=== PATIENT | female | born 1980 | race African-American/Black ===

== ENCOUNTER 2017-05-04 05:29 | Inpatient (IN) | payer OTHER ==
[~2017-05-04] VITALS: Ht 165.1 cm; Wt 190.1 kg
[~2017-05-04 05:29] MED LIST: AMLO5TAB2 PO; FLUT1SPR5 EACH NARE; METF1000 PO; METF500T PO; METO50TA PO; NAPR500T PO; NORE5TAB PO; SIMV20TA PO; VITA1000 PO; VITACAP7 PO
[2017-05-04] MEDS ORDERED: INSULIN HUMAN REGULAR 1,000 UNITS/10 ML VIAL SQ PRN (05:45)
[2017-05-04] MEDS ORDERED: SODIUM CHLORID 0.9% 500 ML IV PRN (05:45)
[2017-05-04] MEDS ORDERED: METOPROLOL TARTRATE 25 MG TAB PO PRN (05:45)
[2017-05-04] MEDS ORDERED: POVIDONE IODINE 5% (ANTISEPSIS KIT) 4 APPLICATIONS EACH NARE PRN (05:45)
[2017-05-04] MEDS ORDERED: CHLORHEXIDINE GLUCONATE 2 % 1 PACK (2 CLOTHS) TOPICAL PRN (05:45)
[2017-05-04] MEDS ORDERED: LACTATED RINGER'S 1000 ML IV PRN (05:45)
[2017-05-04] MEDS ORDERED: APREPITANT 40 MG CAP PO SCH (06:00)
[2017-05-04] MEDS ORDERED: ONDANSETRON HCL 4 MG/2 ML VIAL IV PUSH SCH (06:00)
[2017-05-04] MEDS ORDERED: ceFAZolin 2 GM PREMIX 50 ML IV SCH (06:00)
[2017-05-04] MEDS ORDERED: metroNIDAZOLE 500 MG INJ 100 ML IV SCH (06:00)
[2017-05-04] MEDS ORDERED: SCOPOLAMINE 1.5 MG PATCH T-DERMAL SCH (06:00)
[2017-05-04] MEDS ORDERED: ACETAMINOPHEN 1000 MG/100 ML 100 ML IV SCH (06:00)
[2017-05-04] MEDS ORDERED: BUPIVACAINE/EPINEPHRINE 0.25% 50 ML VIAL ONE (06:33)
[2017-05-04] MEDS ORDERED: METHYLENE BLUE 10 MG/ML VIAL OTHER ONE (08:21)
[2017-05-04] MEDS ORDERED: ACETAMINOPHEN 325MG/HYDROcodone 7.5MG/15ML UDC PO PRN ×2 (09:00)
[2017-05-04] MEDS ORDERED: MORPHINE SULFATE 30 MG/30 ML PCA IV SCH (09:00)
[2017-05-04] MEDS ORDERED: Post-op Orders (for Pharmacy) MISC OTHER ONE (09:00)
[2017-05-04] MEDS ORDERED: SODIUM CHLORIDE 0.9% FLUSH 10 ML FLUSH IV FLUSH PRN (09:00)
[2017-05-04] MEDS ORDERED: diphenhydrAMINE HCL ELIXIR 12.5 MG/5 ML CUP PO PRN (09:00)
[2017-05-04] MEDS ORDERED: DEXTROSE 50% IN WATER 50 ML VIAL(D50) IV PUSH PRN (09:00)
[2017-05-04] MEDS ORDERED: GLUCAGON 1 MG/ML VIAL OTHER PRN (09:00)
[2017-05-04] MEDS ORDERED: NALOXONE HCL 0.4 MG/ML AMP IV PUSH PRN (09:00)
[2017-05-04] MEDS ORDERED: diphenhydrAMINE HCL 50 MG/ML VIAL IV PUSH PRN (09:00)
[2017-05-04] MEDS: SODIUM CHLORIDE 0.9% FLUSH 10 ML FLUSH IV FLUSH SCH ×2 (09:00→19:52)
[2017-05-04] MEDS ORDERED: *morphine SULFATE 8 MG/ML PERIprocedure ONLY ONE (09:25)
[2017-05-04] MEDS ORDERED: *PROMETHAZINE 25 MG/ML VIAL PERIprocedural use ONLY ONE (09:25)
[2017-05-04] MEDS: 1/2 NS + KCL 20 MEQ INJ 1,000 ML IV SCH ×2 (11:00→18:15)
[2017-05-04] MEDS ORDERED: ROCURONIUM INJ 50 MG/5 ML SYRINGE IV PUSH ONE (12:00)
[2017-05-04] MEDS: ACETAMINOPHEN 1000 MG/100 ML 100 ML IV SCH ×2 (12:00→18:10)
[2017-05-04] MEDS ORDERED: MIDAZOLAM HCL 2 MG/2 ML VIAL IV ONE (12:00)
[2017-05-04] MEDS ORDERED: ONDANSETRON HCL 4 MG/2 ML VIAL IV PUSH ONE (12:00)
[2017-05-04] MEDS: METOCLOPRAMIDE HCL 10 MG/2 ML VIAL IV PUSH SCH ×2 (12:00→18:10)
[2017-05-04] MEDS ORDERED: GLYCOPYRROLATE 1 MG/5 ML SYRINGE IV PUSH ONE (12:00)
[2017-05-04] MEDS ORDERED: PROPOFOL 200 MG/20 ML AMP IV ONE (12:00)
[2017-05-04] MEDS ORDERED: MORPHINE SULFATE 4 MG/ML INJ IV ONE (12:00)
[2017-05-04] MEDS: PANTOPRAZOLE SOD 40 MG DELAYED RELEASE TAB PO SCH (12:00)
[2017-05-04] MEDS: RESP: ALBUTEROL 2.5 MG/3 ML NEB (SCH) INH ×4 (12:00→23:37)
[2017-05-04] MEDS ORDERED: KETOROLAC TROMETHAMINE 30 MG/ML (IVP) VIAL IV PUSH ONE (12:00)
[2017-05-04] MEDS ORDERED: LIDOCAINE HCL 1% PF 5 ML AMPULE OTHER ONE (12:00)
[2017-05-04] MEDS ORDERED: NEOSTIGMINE 3 MG/3 ML SYR IV ONE (12:00)
[2017-05-04] MEDS: INSULIN NovoLIN REGULAR SUPPLEMENTAL SCALE SQ SCH ×3 (12:16→20:00)
[2017-05-04] MEDS: ENOXAPARIN SODIUM 40 MG/0.4 ML SYRINGE SQ SCH (12:40)
[2017-05-04] MEDS: PCA - TOTAL MG MORPHINE DELIVERED PER SHIFT SCH ×2 (14:00→22:00)
[2017-05-04] MEDS ORDERED: DO NOT ADM ANY ANTICOAGULANT DRUGS PRN (14:30)
[2017-05-04] MEDS: metroNIDAZOLE 500 MG INJ 100 ML IV SCH ×2 (15:28→23:42)
[2017-05-04 16:00] VITALS: BP 139/82; PULSE 95; RESP 22; TEMP 96.9; O2SAT 95
[2017-05-04 16:25] VITALS: O2SAT 94
[2017-05-04] MEDS: ONDANSETRON HCL 4 MG/2 ML VIAL IV PUSH PRN (16:43)
[2017-05-04 20:00] VITALS: BP 166/90; PULSE 70; RESP 18; TEMP 97.8; O2SAT 95
[2017-05-05] VITALS: BP 164/82; PULSE 69; RESP 19; TEMP 97.9; O2SAT 94
[2017-05-05] MEDS: METOCLOPRAMIDE HCL 10 MG/2 ML VIAL IV PUSH SCH ×2 (00:30→05:48)
[2017-05-05] MEDS: ACETAMINOPHEN 1000 MG/100 ML 100 ML IV SCH ×2 (00:31→05:46)
[2017-05-05] MEDS: 1/2 NS + KCL 20 MEQ INJ 1,000 ML IV SCH ×2 (03:00→13:30)
[2017-05-05] MEDS: RESP: ALBUTEROL 2.5 MG/3 ML NEB (SCH) INH ×4 (03:34→16:19)
[2017-05-05 04:00] VITALS: BP 157/83; PULSE 77; RESP 19; TEMP 97.7; O2SAT 93
[2017-05-05] MEDS: PCA - TOTAL MG MORPHINE DELIVERED PER SHIFT SCH ×2 (06:00→14:00)
[2017-05-05] MEDS: metroNIDAZOLE 500 MG INJ 100 ML IV SCH (06:21)
[2017-05-05] MEDS: PANTOPRAZOLE SOD 40 MG DELAYED RELEASE TAB PO SCH (07:57)
[2017-05-05] MEDS: INSULIN NovoLIN REGULAR SUPPLEMENTAL SCALE SQ SCH ×3 (07:58→17:00)
[2017-05-05] MEDS: SODIUM CHLORIDE 0.9% FLUSH 10 ML FLUSH IV FLUSH SCH (07:59)
[2017-05-05 08:00] VITALS: BP 135/73; PULSE 65; RESP 19; TEMP 97.5; O2SAT 93
--- NOTE | 2017-05-05 08:17 | MP ---
cc: WYATT ALTAMIRANO DATE OF SURGERY: 05/04/2017 1980 PREOPERATIVE DIAGNOSIS Super obesity with BMI of 68 complicated by obstructive sleep apnea, essential hypertension and type 2 diabetes. POSTOPERATIVE DIAGNOSIS Super obesity with BMI of 68 complicated by obstructive sleep apnea, essential hypertension and type 2 diabetes. PROCEDURE Laparoscopic vertical sleeve gastrectomy over a 36-[place] ViSiGi bougie. SURGEON Wyatt Alatmirano MD ANESTHESIA General endotracheal anesthesia. ESTIMATED BLOOD LOSS Scant. FINDINGS Fatty liver. SPECIMENS None. COMPLICATIONS None. PROCEDURE IN DETAIL The patient was brought to the operating room and placed on the operating table in supine position, bilateral sequential inflation device placed on lower extremities. General anesthesia was instituted. Antibiotics was initiated. The abdomen was prepped and draped sterilely. A point 15 cm distal to the xiphoid in the midline was anesthetized with 0.25% Marcaine with epinephrine. A skin incision was made, 5-mm OptiView port placed under direct vision and pneumoperitoneum created. Under direct vision, three 5-mm left upper quadrant, a 15-mm right upper quadrant, 5-mm right upper quadrant ports placed. Prior to placement of all ports the skin and peritoneum were anesthetized with 0.25% Marcaine with epinephrine. The patient was placed in reverse Trendelenburg position left side up, the Tammy-Flex retractor was placed. The left lobe of the liver was retracted. The vasculature along the greater curvature of the stomach was using harmonic scalpel starting a distance 5-cm proximal to the pylorus and carried towards the angle of His. The angle of His was taken down bluntly. Posterior ligamentous attachments were sharply . A 36-[place] ViSiGi bougie was placed at the start of the case, was placed on suction. Division of the stomach started 5 cm proximal to the pylorus and carried towards the angle of His to completely excise approximately 80% of the stomach. This was performed using an [place] Flex stapler at the pylorus. The first firing was with a black load, followed by a green load and four gold loads. All staple loads were reinforced with SeamGuard. A distance of 2 cm was left from the angle incisura and the staple line and a distance of 1 cm left from the GE junction and the staple line. The pylorus was then occluded, methylene blue tinged saline was instilled. There was no evidence of extravasation. The gastrocolic ligament was then sutured to the posterior leaflet of the SeamGuard using a 2-0 Vicryl suture in a running manner. Bleeding points were controlled with Evicel. The excised stomach was removed from the peritoneal cavity through the 15-mm port site. The fascia at the 15-mm port site was approximated with 0 Vicryl suture. The CO2 was then released, all ports were removed, all skin incisions closed with 4-0 Monocryl. The abdominal wall was cleaned. A sterile dressing was placed. The patient was awakened and taken to the recovery room. MD ZAHIRA Gilliam/TLL /7:56 AM /7:59 AM
[2017-05-05 08:32] LABS: AUTOMATED NEUTROPHIL # 13.4 TH/MM3 (1.8-7.7); BASOPHIL % 0.2 % (0.0-2.0); EOSINOPHIL % 0.3 % (0.0-4.0); HEMATOCRIT 38.3 % (35.0-46.0); HEMO FLAGS DIFF FINAL; LYMPH % 7.4 % (9.0-44.0); LYMPHOCYTE # 1.2 TH/MM3 (1.0-4.8); MEAN CELL VOLUME 79.7 FL (80.0-100.0); MEAN CORPUSCULAR HEMOGLOBIN 26.4 PG (27.0-34.0); MEAN CORPUSCULAR HGB CONC 33.1 % (32.0-36.0); MONO % 10.3 % (0.0-8.0); NEUT % 81.8 % (16.0-70.0); PLATELET COUNT 217 TH/MM3 (150-450); RED BLOOD COUNT 4.81 MIL/MM3 (4.00-5.30); RED CELL DISTRIBUTION WIDTH 17.4 % (11.6-17.2); WHITE BLOOD COUNT 16.4 TH/MM3 (4.0-11.0)
[2017-05-05 08:52] VITALS: O2SAT 96
[2017-05-05 08:55] LABS: BICARBONATE 25.4 MEQ/L (21.0-32.0); MAGNESIUM 1.9 MG/DL (1.5-2.5); POTASSIUM 3.5 MEQ/L (3.5-5.1)
[2017-05-05] MEDS ORDERED: METOPROLOL TARTRATE 50 MG TAB PO SCH (09:00)
[2017-05-05] MEDS ORDERED: amLODIPine BESYLATE 5 MG TAB PO SCH (09:00)
[2017-05-05] MEDS ORDERED: METOCLOPRAMIDE HCL 10 MG/2 ML VIAL IV PUSH PRN (09:00)
[2017-05-05] MEDS ORDERED: INFLUENZA VIRUS VACCINE (QUADRIVALENT) 0.5 ML SYR IM ONE (10:00)
[2017-05-05] MEDS ORDERED: PNEUMOCOCCAL POLYVALENT INJ 25 MCG/0.5 ML SYR IM ONE (10:00)
[2017-05-05] MEDS: ONDANSETRON HCL 4 MG/2 ML VIAL IV PUSH PRN (10:40)
[2017-05-05 12:00] VITALS: BP 156/88; PULSE 75; RESP 18; TEMP 98.1; O2SAT 96
--- NOTE | 2017-05-05 12:08 | HHI.PR ---
Subjective Subjective Notes Laying in bed Going slow with fluids Nausea controlled with medication Objective Vitals/I&O Vital Signs Date Time Temp Pulse Resp B/P (MAP) Pulse Ox O2 Delivery O2 Flow Rate FiO2 05/05/17 08:52 96 05/05/17 08:00 97.5 65 19 135/73 (93) 05/04/17 16:25 21 05/04/17 12:39 Nasal Cannula 4 Labs Laboratory Tests Test 05/05/17 07:14 White Blood Count 16.4 Red Blood Count 4.81 Hemoglobin 12.7 Hematocrit 38.3 Mean Corpuscular Volume 79.7 Mean Corpuscular Hemoglobin 26.4 Mean Corpuscular Hemoglobin Concent 33.1 Red Cell Distribution Width 17.4 Platelet Count 217 Mean Platelet Volume 10.5 Neutrophils (%) (Auto) 81.8 Lymphocytes (%) (Auto) 7.4 Monocytes (%) (Auto) 10.3 Eosinophils (%) (Auto) 0.3 Basophils (%) (Auto) 0.2 Neutrophils # (Auto) 13.4 Lymphocytes # (Auto) 1.2 Monocytes # (Auto) 1.7 Eosinophils # (Auto) 0.0 Basophils # (Auto) 0.0 CBC Comment DIFF FINAL Differential Comment Blood Urea Nitrogen 8 Creatinine 0.71 Random Glucose 113 Calcium Level 8.2 Magnesium Level 1.9 Sodium Level 136 Potassium Level 3.5 Chloride Level 102 Carbon Dioxide Level 25.4 Anion Gap 9 Estimat Glomerular Filtration Rate 114 Cardiovascular: Regular Lungs: Clear Abdomen: Post-op tenderness Extremities: Perfused Wound Wound : Wound Location: Abdomen Appearance: Clean & Dry A/P Assessment and Plan 36yo F POD#1 VSG -Ambulate halls at least QID -Increase fluids as tolerated -Restart home BP meds Discharge Planning D/C home later today Missy Bundy May 05, 2017 12:08
[2017-05-05] MEDS: ENOXAPARIN SODIUM 40 MG/0.4 ML SYRINGE SQ SCH (13:30)
[2017-05-05 16:00] VITALS: BP 147/88; PULSE 72; RESP 18; TEMP 96.1; O2SAT 93
== END 2017-05-05 18:17 | disposition home or self-care (01) | DRG 621 ==
LOC: HSDI 05:29 → N07B 13:20
PROVIDERS: ADMIT Surgery; ATTEND Surgery
PROC: 0DB64Z3 Excision of Stomach, Percutaneous Endoscopic Approach, Vertical (ICD-10-PCS; principal; 2017-05-04 07:12)
DX: E66.01 Morbid (severe) obesity due to excess calories (principal); I10 Essential (primary) hypertension; E11.9 Type 2 diabetes mellitus without complications; Z68.44 Body mass index [BMI] 60.0-69.9, adult; G47.33 Obstructive sleep apnea (adult) (pediatric)
CPT/HCPCS: 80048; 82948; 83735; 85025; 90686; 90732; 94150; 94640; 94664; J0131; J0690; J1650; J1885; J2250; J2270; J2405; J2550; J2710; J2765; J3010; J7120; J7613; J8501; Q2038